=== PATIENT | male | born 1950 | race Caucasian/White ===

== ENCOUNTER → 2023-11-05 14:19 | Outpatient (REF) | payer MEDICARE, BC, SELFPAY | LOC: HWRAD 14:19 | PROVIDERS: ATTENDING PHYSICIAN Urology; FAMILY PHYSICIAN Family Medicine | DX: M81.0 Age-related osteoporosis without current pathological fracture (principal) | CPT/HCPCS: 77080 ==

== ENCOUNTER 2025-08-01 06:26 | Day surgery (SDC) | payer MEDICARE, BC, SELFPAY | END 2025-08-01 11:00 | disposition home or self-care (01) | LOC: GI 06:26 | PROVIDERS: ATTENDING PHYSICIAN Internal Medicine Gastroenterology | DX: Z12.11 Encounter for screening for malignant neoplasm of colon (principal); K57.30 Diverticulosis of large intestine without perforation or abscess without bleeding; K64.8 Other hemorrhoids; K51.50 Left sided colitis without complications; D12.5 Benign neoplasm of sigmoid colon | CPT/HCPCS: 45385; 45380; 88305 ==